=== PATIENT | female | born 1940 | race Caucasian/White ===

== ENCOUNTER → 2017-02-06 | Outpatient (CLI) | payer MEDICARE ==
--- NOTE | 2017-02-06 14:47 | MAMMOGRAPHY REPORT ---
BILATERAL DIGITAL SCREENING MAMMOGRAM WITH CAD: 02/06/2017 CLINICAL HISTORY: Routine screening. Patient has no complaints. TECHNIQUE: Current study was also evaluated with a Computer Aided Detection (CAD) system. Bilateral CC and MLO views were obtained. COMPARISON: Comparison is made to exams dated: 02/06/2016 mammogram, 02/02/2015 mammogram, 12/17/2013 ma mmogram, 12/16/2012 mammogram, 06/16/2012 mammogram, and 12/14/2011 mammogram - [facility] enter. BREAST COMPOSITION: There are scattered areas of fibroglandular density in both breasts. FINDINGS: There are 2 asymmetries with possible associated architectural distortion seen within the right upper outer quadrant, as well as an asymmetry and associated questionable architectural distort ion seen within the left inferior subareolar breast on the MLO view. Recommend bilateral tomosynthes is mammograms and possible ultrasound for further evaluation. The remainder of both breasts are stable compared to prior exams, without suspicious masses, calcific ations, or areas of architectural distortion noted. Scattered bilateral benign-appearing calcificati ons are stable. Other nodularity bilaterally does not appear significantly changed. IMPRESSION: ACR BI-RADS CATEGORY 0: INCOMPLETE EVALUATION: NEED ADDITIONAL IMAGING EVALUATION Bilateral asymmetries, for which additional imaging evaluation is recommended. The patient will be c alled to schedule an appointment. Approximately 10% of breast cancers are not detected with mammography. A negative mammographic report should not delay biopsy if a clinically suggestive mass is present. Evie Holley M.D. /:02/06/2017 12:25:09 Airfield Services Officer: Inez DING(R)(M), [facility] letter sent: Addl Imaging 0 BI-RADS Code: ACR BI-RADS Category 0: Incomplete Evaluation: Need Additional Imaging Evaluation
== END | disposition home or self-care (01) ==
LOC: C.MAMM 10:27
PROVIDERS: ATTEND Family Medicine
DX: Z12.31 Encounter for screening mammogram for malignant neoplasm of breast (principal); R92.8 Other abnormal and inconclusive findings on diagnostic imaging of breast

== ENCOUNTER → 2017-02-22 | Outpatient (CLI) | payer MEDICARE ==
--- NOTE | 2017-02-25 14:31 | MAMMOGRAPHY REPORT ---
BILATERAL DIGITAL DIAGNOSTIC MAMMOGRAM TOMOSYNTHESIS WITH CAD AND TARGETED RIGHT ULTRASOUND: 02/22/2017 CLINICAL HISTORY: Callback from screening mammogram for bilateral asymmetries. TECHNIQUE: Breast tomosynthesis in addition to standard 2D mammography was performed. Current study was also evaluated with a Computer Aided Detection (CAD) system. Spot compression right CC and MLO a nd full left CC, MLO, and right mL tomosynthesis images including C views were obtained. COMPARISON: Comparison is made to exams dated: 02/06/2017 mammogram, 02/06/2016 mammogram, 02/02/2015 m ammogram, 12/17/2013 ultrasound, 12/17/2013 mammogram, and 12/16/2012 mammogram - [facility] nt. BREAST COMPOSITION: There are scattered areas of fibroglandular density in both breasts. FINDINGS: Spot compression views demonstrate 2 spiculated masses in the right upper outer quadrant, one measuring 9 mm and the other measuring approximately 10 mm. These are best seen on the tomosynth esis images and are located approximately 3.2 cm apart on the CC images. The previously described asymmetry seen within the left subareolar breast has the appearance of tere l fibroglandular tissue on the additional views. No suspicious masses or areas of architectural dist ortion are noted within the left breast on the additional views. There is nodularity seen throughout both breasts, best appreciated on the tomosynthesis images, which appears similar to prior exams. Targeted ultrasound was performed of the right upper outer quadrant in the region of the mammographic masses. In the right breast at 9:00, 8 cm from the nipple, there is an irregular hypoechoic solid m ass which measures 7 x 10 x 5 mm. In the right breast at 9:00, 4 cm from the nipple, there is an irr egular hypoechoic solid mass which measures 7 x 5 x 5 mm. These are felt to correspond with the mamm ographic masses and are suspicious for malignancy. Recommend ultrasound-guided core needle biopsy fo r further evaluation. Targeted ultrasound was performed of the right axilla. The right axillary lymph nodes demonstrate no rmal fatty kay and have a normal oval shape. Some of the lymph nodes demonstrate peripheral cortica l thickness at the upper limits of normal. No clear adenopathy is evident. IMPRESSION: ACR BI-RADS CATEGORY 4C: MODERATE SUSPICION FOR MALIGNANCY, TARGETED ULTRASOUND ACR BI-R ADS CATEGORY 4C: MODERATE SUSPICION FOR MALIGNANCY 1. Two spiculated masses in the right 9:00 breast, one measuring 10 mm and the other measuring 7 mm. The masses are suspicious and ultrasound-guided core needle biopsy 2 is recommended for further radha luation. 2. No mammographic evidence of malignancy in the left breast. 3. No clear right axillary adenopathy is evident. A few of the lymph nodes demonstrate cortical thi ckness at the upper limits of normal. A phone call was made to the physician's office to confirm faxed results were received. The patient has been verbally notified of the results. She tentatively scheduled the biopsies before leaving the department. Approximately 10% of breast cancers are not detected with mammography. A negative mammographic report should not delay biopsy if a clinically suggestive mass is present. Evie Holley M.D. ah/:02/22/2017 15:10:31 Glass Block Bender: Inez DING(Jennifer)(Mendoza), [facility] letter sent: Abnormal 4/5 BI-RADS Code: ACR BI-RADS Category 4C: Moderate Suspicion For Malignancy Ultrasound BI-RADS: ACR BI- RADS Category 4C: Moderate Suspicion For Malignancy
== END | disposition home or self-care (01) ==
LOC: C.MAMM 13:36
PROVIDERS: ATTEND Family Medicine
DX: R92.8 Other abnormal and inconclusive findings on diagnostic imaging of breast (principal); N63 Unspecified lump in breast

== ENCOUNTER → 2017-03-04 | Outpatient (CLI) | payer MEDICARE ==
--- NOTE | 2017-03-04 10:36 | Discharge Instructions ---
Discharge Instructions Procedure Procedure Date: Mar 04, 2017. Reason for visit: Right Masses. Discharge Discharge Date: Mar 04, 2017. Discharge Diagnosis: post right breast ultrasound guided core biopsy x 2 Instructions Activity Recommendations: Additional Limitations (see below) Return to School/Work: no limitations Recommended Home Diet: No Limitations Provider Instructions: ACTIVITY RECOMMENDATIONS: * No lifting, pushing, pulling or exercising the affected side for three days. RETURN TO SCHOOL/WORK: * You may return to work/school after the procedure, but do not perform any strenuous activities for 24 to 48 hours. MEDICATIONS: * Tylenol (two 325 mg) every four to six hours if needed for mild pain (if not allergic to Tylenol). DIET: * Resume previous diet. SPECIAL CARE INSTRUCTIONS: * Keep biopsy site dry for 24 hours. May shower after 24 hours, but do not soak (bathe) incision. * May remove Tegaderm (plastic patch) tomorrow AFTER showering. * Leave the steri-strips on for one week. Allow the steri-strips to fall off by themselves. If not off after one week, you may remove them. You may place a Bandaid crosswise over the strips, if desired. * Apply ice 10 minutes on and 10 minutes off as needed. * Wear a bra at bedtime to sleep more comfortably for 2-3 days. * Your referring physician should have the results after approximately 5 to 7 business days. * Call for unusual bleeding, fever, drainage, etc or if you have any questions call [phone] during normal business hours or after hours call Dr Martinez, . FOLLOW UP VISIT: Follow-up with Referring Physician as scheduled. Allergies Coded Allergies: Codeine (Verified Allergy, 09/23/09) Uncoded Allergies: CODEINE (Allergy, Unknown, 10/01/02) N (Allergy, Unknown, 10/01/02) NKA (Allergy, Unknown, 10/01/02) CODEINE (Generic Allergy) (Allergy, Y, 10/01/02) OPIATEAGONISTS (Allergy, 09/23/09) Nomi Wiseman Recommendations: Call your doctor if: * Temperature above 101 degrees * Pain not relieved by pain medicine ordered * There is increased drainage or redness from any incision * You have any unanswered questions or concerns. Your Doctors Instructions noted above were prepared by provider Carline Martinez. Patient Signature Section: Patient Instructions Signature Page Alyce Sanchez Patient (or Guardian) Signature/Date: I have read and understand the instructions given to me by my caregivers. Caregiver/RN/Doctor Signature/Date: The above-named patient and/or guardian has received patient instructions on this date. + Original Patient Signature Page (only) stays with chart. Please make copy for patient.
--- NOTE | 2017-03-04 15:12 | MAMMOGRAPHY REPORT ---
UNILATERAL RIGHT DIGITAL DIAGNOSTIC MAMMOGRAM TOMOSYNTHESIS: 03/04/2017 CLINICAL HISTORY: Status post ultrasound guided core biopsy 2 in the right 9:00 breast. Please refer to report from right breast ultrasound-guided core biopsy performed at the same time for full detail. IMPRESSION: POST PROCEDURE IMAGING FOR MARKER PLACEMENT Please refer to report from right breast ultrasound-guided core biopsy performed at the same time for full detail. Approximately 10% of breast cancers are not detected with mammography. A negative mammographic report should not delay biopsy if a clinically suggestive mass is present. Carline Martinez M.D. ay/:03/04/2017 10:49:26 Velvet Weaver: Yandy DING(Jennifer)(M), [facility] BI-RADS Code: Post Procedure Imaging For Marker Placement
--- NOTE | 2017-03-04 15:12 | MAMMOGRAPHY REPORT ---
ULTRASOUND GUIDED BIOPSY: 03/04/2017 CLINICAL HISTORY: 2 indeterminate solid masses in the 9:00 right breast. Patient presented for ultra sound guided core biopsy 2. Please refer to report from right breast ultrasound-guided core biopsy performed at the same time for full detail. IMPRESSION: ULTRASOUND GUIDED BIOPSY Please refer to report from right breast ultrasound-guided core biopsy performed at the same time for full detail. Carline Martinez M.D. ay/:03/04/2017 10:50:02 Multimedia Instructional Designer: Yandy DING(Jennifer)(M), [facility]
--- NOTE | 2017-03-05 07:40 | MAMMOGRAPHY REPORT ---
THIS REPORT HAS BEEN AMENDED. MULTIPLE ULTRASOUND GUIDED BIOPSIES RIGHT BREAST: 03/04/2017 CLINICAL HISTORY: 76-year-old woman with 2 indeterminate solid masses in the right 9:00 breast, 4 cm and 8 cm from the nipple. She presents for ultrasound-guided core biopsy 2. COMPARISON: Comparison is made to exams dated: 02/22/2017 ultrasound, 02/22/2017 mammogram, 02/06/2017 ma mmogram, 02/06/2016 mammogram, 02/02/2015 mammogram, and 12/17/2013 mammogram - [facility]. PATIENT CONSENT: The procedure, risks and benefits were discussed with the patient and informed writt en consent was obtained. Specific risks to this procedure include: bleeding, infection, puncture of a djacent structure, nontarget biopsy, sampling error, metal allergy and medication reaction. PROCEDURE DESCRIPTION: A time out was performed and the right breast was agreed as the site of biopsy . The skin was prepped and draped in the usual sterile fashion. First, the solid spiculated mass in the 9:00 right breast, 8 cm from the nipple was identified and targeted for biopsy. Subcutaneous and intraparenchymal 1% buffered lidocaine, with and without epinephrine, was administered as local anes thesia. A skin incision was made. Through the incision, 4 samples were taken with a 14 gauge Achieve biopsy device. A ribbon-shaped metallic marker was placed at the biopsy site. Hemostasis was achieve d after manual compression. The patient tolerated the procedure well and there was no immediate compl ication. Then the spiculated mass in the 9:00 right breast, 4 cm from the nipple was identified and targeted f or biopsy. Additional subcutaneous and intraparenchymal 1% buffered lidocaine, with and without epin ephrine, was administered as local anesthesia. A skin incision was made. Through the incision, 5 rajeev ples were taken with a 14 gauge Achieve biopsy device. A wing-shaped metallic marker was placed at th e biopsy site. Hemostasis was achieved after manual compression. The patient tolerated the procedure well and there was no immediate complication. Although the samples were sent to pathology in appropr iately labeled containers. Postprocedure right CC and ML tomosynthesis images were obtained. New metallic biopsy markers are se en in the 9:00 right breast, middle one third. No significant post biopsy hematoma is identified. T he biopsy marker clips align with the mammographic masses in question, confirming mammographicsonogr aphic correlation. IMPRESSION: ULTRASOUND GUIDED BIOPSY Status post ultrasound-guided core needle biopsy 2 in the 9:00 axis of the right breast, with biopsy markers placed at each site. The patient will receive written notification of the results. Carline Martinez M.D. ay/:03/04/2017 15:23:55 Custom Dressmaker: Yandy DING(Jennifer)(Mendoza), [facility] AMENDMENT: 03/08/2017 Carline Martinez M.D. Pathology results from the ultrasound-guided core biopsy of a hypoechoic solid mass in the 9:00 right breast, 4 cm from the nipple yielded invasive ductal carcinoma, Nina grade 2 of 3, ER and CO p ositive, HER-2/ira equivocal. Pathology results from the ultrasound-guided core biopsy of a spiculated mass in the 9:00 right breas t, 8 cm from the nipple yielded invasive ductal carcinoma, Nina grade 2 of 3, ER and CO positiv e, HER-2/ira negative. The pathology results are concordant with the imaging appearance. Given the diffuse nodularity of th e right breast seen mammographically, further evaluation with a bilateral breast MRI is recommended p rior to definitive treatment, to exclude the possibility of any other suspicious solid masses in the right breast and also to exclude the possibility of contralateral disease. The pathology results as well as the MRI recommendation were discussed with the patient at 4:45 PM on 03/08/2017.
== END | disposition home or self-care (01) ==
LOC: C.MAMM 09:26
PROVIDERS: ATTEND Family Medicine
DX: C50.911 Malignant neoplasm of unspecified site of right female breast (principal)

== ENCOUNTER → 2018-03-26 | Outpatient (CLI) | payer MEDICARE | END | disposition home or self-care (01) | LOC: C.LABMFLN 13:20 | PROVIDERS: ATTEND Family Medicine | DX: J34.89 Other specified disorders of nose and nasal sinuses (principal) ==